=== PATIENT | female | born 1985 | race Two or more races ===

== ENCOUNTER 2017-03-07 19:37 | Emergency (ER) | payer MEDICAID ==
[2017-03-07] MEDS ORDERED: NS 1,000 ML IV ONE (20:15)
--- NOTE | 2017-03-07 20:19 | EDPHY ---
H & P Stated Complaint: abdominal pain/bloating Time Seen by Provider: 03/07/17 20:03 HPI/ROS: CHIEF COMPLAINT: Abdominal distention and crampy pain after eating HISTORY OF PRESENT ILLNESS: The patient is a 32-year-old female who comes to the emergency department complaining of abdominal bloating/distention over the last 2 weeks as well as pain in the epigastric and occasionally suprapubic region after she eats. She has been having normal bowel movements and flatus. She has had a gallbladder attack in the past. She states that she does not have a desire to eat because she has pain whenever she eats. Today she had almonds and had significant right upper quadrant pain. No fever. No vomiting or nausea. She denies risk of . No urinary or vaginal symptoms. No chest pain or shortness of breath. also reports that she had abdominal pain during intercourse the other day. She states that she looked her symptoms up on the Internet and was concerned about ovarian cancer. REVIEW OF SYSTEMS: Constitutional: denies: chills, fever, recent illness, recent injury EENTM: denies: blurred vision, double vision, nose congestion Respiratory: denies: cough, shortness of breath Cardiac: denies: chest pain, irregular heart rate, lightheadedness, palpitations Gastrointestinal/Abdominal: See HPI denies: diarrhea, nausea, vomiting, blood streaked stools Genitourinary: denies: dysuria, frequency, hematuria, pain Musculoskeletal: denies: joint pain, muscle pain Skin: denies: lesions, rash, jaundice, bruising Neurological: denies: headache, numbness, paresthesia, tingling, dizziness, weakness Hematologic/Lymphatic: denies: blood clots, easy bleeding, easy bruising Immunologic/allergic: denies: HIV/AIDS, transplant EXAM: GENERAL: Well-appearing, well-nourished and in no acute distress. HEAD: Atraumatic, normocephalic. EYES: Pupils equal round and reactive to light, extraocular movements intact, sclera anicteric, conjunctiva are normal. ENT: TMs normal, nares patent, oropharynx clear without exudates. Moist mucous membranes. NECK: Normal range of motion, supple without lymphadenopathy or JVD. LUNGS: Breath sounds clear to auscultation bilaterally and equal. No wheezes rales or rhonchi. HEART: Regular rate and rhythm without murmurs, rubs or gallops. ABDOMEN: Soft, mildly distended, nontender, normoactive bowel sounds. No guarding, no rebound. No masses appreciated. BACK: No CVA tenderness, no spinal tenderness, step-offs or deformities EXTREMITIES: Normal range of motion, no pitting or edema. No clubbing or cyanosis. NEUROLOGICAL: Cranial nerves II through XII grossly intact. Normal speech, normal gait. 5/5 strength, normal movement in all extremities, normal sensation PSYCH: Normal mood, normal affect. SKIN: Warm, dry, normal turgor, no visible rashes or lesions. Source: Patient Exam Limitations: No limitations - Personal History LMP (Females 10-55): Over 28 Days Ago Current Tetanus/Diphtheria Vaccine: Unsure Current Tetanus Diphtheria and Acellular Pertussis (TDAP): Unsure - Medical/Surgical History Hx Asthma: No Hx Chronic Respiratory Disease: No Hx Diabetes: No Hx Cardiac Disease: No Hx Renal Disease: No Hx Cirrhosis: No Hx Alcoholism: No Hx HIV/AIDS: No Hx Splenectomy or Spleen Trauma: No Other PMH: hypothyroidism, undiagnosed lupus? gall bladder attack - Family History Significant Family History: Other (Breast cancer) - Social History Smoking Status: Never smoked Alcohol Use: Sober Drug Use: None Constitutional: Initial Vital Signs Temperature (C) 36.9 C 03/07/17 20:01 Heart Rate 98 03/07/17 20:01 Respiratory Rate 20 03/07/17 20:01 Blood Pressure 142/95 H 03/07/17 20:01 O2 Sat (%) 98 03/07/17 20:01 O2 Delivery Mode Room Air Allergies/Adverse Reactions: ciprofloxacin [From Cipro] Allergy (Verified 03/07/17 20:00) Pertussis Vaccines Allergy (Verified 03/07/17 20:00) Home Medications: Medication Instructions Recorded Dexedrine 03/07/17 Levothyroxine 03/07/17 Medical Decision Making - Diagnostics Imaging: Discussed imaging studies w/ call center recruiter Radiologist ED Course/Re-evaluation: We discussed the lab and imaging results. The patient is very reassured. Her abdominal exam remains completely benign. We discussed MiraLax and antacid to use for symptomatic relief. I will have her follow up with GI. We also discussed indications for returning. We also discussed the fact that I do not see any sign of ovarian cancer although cannot be completely ruled out. Differential Diagnosis: Partial list of the Differential diagnosis considered include but were not limited to; constipation, biliary disease, peptic ulcer disease, gas, ovarian cyst and although unlikely based on the history and physical exam, I also considered ovarian torsion, kidney stone, urinary tract infection, appendicitis , volvulus, ovarian cancer, uterine cancer, . I discussed these differential diagnoses and the plan with the patient as well as the usual and expected course. The patient understands that the diagnosis is provisional and that in medicine we are not always correct and that further workup is often warranted. Usual and customary warnings were given. All of the patient's questions were answered. The patient was instructed to return to the emergency department should the symptoms at all worsen or return, otherwise to followup with the physician as we discussed. - Data Points Laboratory Results: Laboratory Results 03/07/17 20:30 03/07/17 20:30 Medications Given: Discontinued Medications Sodium Chloride (Ns) 1,000 mls @ 0 mls/hr IV EDNOW ONE; Wide Open PRN Reason: Protocol Stop: 03/07/17 20:16 Last Admin: 03/07/17 20:28 Dose: 1,000 mls Ibuprofen (Motrin) 600 mg PO EDNOW ONE Stop: 03/07/17 20:26 Last Admin: 03/07/17 20:27 Dose: 600 mg Departure - Departure Disposition: Home, Routine, Self-Care Clinical Impression: Abdominal pain Qualifiers: Abdominal location: generalized Qualified Code(s): R10.84 - Generalized abdominal pain Constipation Qualifiers: Constipation type: unspecified constipation type Qualified Code(s): K59.00 - Constipation, unspecified Condition: Fair Instructions: Constipation (ED), Acute Abdominal Pain (ED) Additional Instructions: Use MiraLax as needed as we discussed Trial Pepcid or Prilosec [id number] to see if this improves her symptoms Follow-up with a gastrologist as we discussed. Referrals: JUAN CARLOS FLORES [Primary Care Provider] - As per Instructions Tato Scott MD [[facility] [place] Primary Care Provider] - As per Instructions
[2017-03-07] MEDS ORDERED: IBUPROFEN 600 MG TAB PO ONE (20:25)
[2017-03-07 20:34] LABS: COLOR YELLOW; LEUKOCYTE ESTERASE,URINE NEGATIVE (NEGATIVE); NITRITE,URINE NEGATIVE (NEGATIVE); PH,URINE 7.5 (5.0-7.5)
[2017-03-07 20:38] LABS: WBC,URINE NONE SEEN /hpf (0-3)
[2017-03-07 20:39] LABS: RBC,URINE NONE SEEN /hpf (0-3)
[2017-03-07 20:48] LABS: % IMMATURE GRANULYOCYTES 0.2 % (0.0-1.1); ABSOLUTE IMMATURE GRANULOCYTES 0.01 10^3/uL (0.00-0.10); ADD DIFF? NO; ADD MORPH? NO; ADD SCAN? NO; ATYPICAL LYMPHOCYTE FLAG 10 (0-99); FRAGMENT RBC FLAG 0 (0-99); HEMATOCRIT 36.6 % (38.0-47.0); HEMOGLOBIN 12.8 g/dL (12.6-16.3); LEFT SHIFT FLG 0 (0-99); LIPEMIA HEMOLYSIS FLAG 90 (0-99); MEAN CELL HEMOGLOBIN 30.6 pg (27.9-34.1); MEAN CELL VOLUME 87.6 fL (81.5-99.8); MEAN PLATELET VOLUME 11.5 fL (8.7-11.7); PLATELET CLUMPS FLAG 0 (0-99); PLATELET COUNT 153 10^3/uL (150-400); RED BLOOD CELL COUNT 4.18 10^6/uL (4.18-5.33); RED CELL DISTRIBUTION WIDTH 12.7 % (11.5-15.2)
[2017-03-07 21:02] LABS: ALANINE AMINOTRANSFERASE 48 IU/L (9-52); ALBUMIN 4.3 g/dL (3.5-5.0); ALKALINE PHOSPHATASE 69 IU/L (38-126); ANION GAP 11 mEq/L (8-16); ASPARTATE AMINOTRANSFERASE 27 IU/L (14-46); BILIRUBIN,TOTAL 0.7 mg/dL (0.1-1.4); BILIRUBIN-CONJUGATED 0.3 mg/dL (0.0-0.5); BILIRUBIN-UNCONJUGATED 0.4 mg/dL (0.0-1.1); CALCIUM 9.3 mg/dL (8.5-10.4); CARBON DIOXIDE 28 mEq/l (22-31); CHLORIDE 100 mEq/L (97-110); CREATININE 0.7 mg/dL (0.6-1.0); GLOMERULAR FILTRATION RATE > 60; GLUCOSE 77 mg/dL (70-100); POTASSIUM 3.7 mEq/L (3.5-5.2); SODIUM 139 mEq/L (134-144)
[2017-03-07 22:36] VITALS: RESP 18; O2SAT 95
[2017-03-07 22:54] VITALS: BP 122/57; PULSE 85; TEMP 98.2
== END 2017-03-07 22:58 | disposition home or self-care (01) ==
LOC: CED 19:37
DX: K59.00 Constipation, unspecified (principal); E86.9 Volume depletion, unspecified
CPT/HCPCS: 74000-PO; 76705-PO; 76856-PO; 80048-PO; 80076-PO; 81003-PO; 81015-PO; 83690-PO; 84703-PO; 85025-PO